=== PATIENT | male | born 1990 | race American Indian/Alaskan Native ===

== ENCOUNTER 2020-06-11 16:17 | Inpatient (IN) | payer MEDICAID ==
[~2020-06-11] VITALS: Ht 172.7 cm; Wt 68.1 kg
[2020-06-11 15:40] VITALS: BP 119/70
[~2020-06-11 16:17] MED LIST: NO HOME MEDS; PALI156D IM; acetaminophen 325mg tablet PO PRN; loperamide 2mg capsule PO PRN; magnesium hydroxide 30ml (MOM) UD suspension PO PRN
--- NOTE | 2020-06-11 17:32 | NUR ---
Admission note: [facility] on 5150 at 1545 for gravely disabled from [facility]. Pt was manic and making nonsensical speech. Pt has been off of his Invega sustaina. Pt often goes to his fathers house uninvited at 0300 in the morning. Pt has history of anxiety and Schizophrenia. Pt uncooperative at at [facility] requiring multiple prns and B52. Pt was sedated upon arrival but refusing to cooperate with admission but completed.
[2020-06-11] MEDS: traZODone 50mg tablet PO PRN (21:31)
[2020-06-11] MEDS: LORazepam 1 MG tablet PO PRN (21:31)
[2020-06-11] MEDS: NICOTINE POLACRILEX 2 MG LOZENGE BC PRN (21:59)
--- NOTE | 2020-06-11 22:38 | NUR ---
Nursing Progress Note Legal hold: 515 Client on voluntary/involuntary status for GD. Report received from nurse with use of Jonh GRUBBS. Why are they here: PT admitted [facility] to [facility] on 5150 for gravely disabled from [facility]. Pt was manic and making nonsensical speech. Pt has been off of his Invega sustaina. Pt often goes to his fathers house uninvited at 0300 in the morning. Pt has history of anxiety and Schizophrenia. Pt uncooperative at at [facility] requiring multiple prns and B52. Pt was sedated upon arrival but refusing to cooperate with admission but completed. Diagnosis/presenting symptoms: Psychosis Assessment What has happened this shift: pt isolated to his room all evening. Pt briefly awoke for assessments but would not talk or engage. Pt did wake up at one point and asked for a snack. When snack was brought to pt, pt would not wake up to eat it. Pt eventually woke up again and was more friendly. Pt ate several snacks and requested an Ativan for anxiety before returning to bed. S/I, H/I: zuly A/VH: zuly Sleep: see sleep hours ADL's: will need prompting Group attendance: n/a Were meds taken: n/a Any med S/E n/a Mental Status Exam Appearance: facial tattoos, disheveled Eye contact: poor Behavior: sedated Speech: quiet, slow Mood: lethargic Affect: flat Thought process: zuly Thought Content: food Cognition: zuly Insight: poor Judgment: poor Therapeutic interventions: PRN's used: Therapeutic interventions: Introduced self and attempted to establish rapport, maintained a safe and supportive environment, provided clear and simple instructions, attempted to orient to reality, monitored behaviors and need for intervention, and maintained Q 15min safety checks. Restraints/seclusion/emergency medication: None Justification of Continued Inpatient Treatment: Pt. requires interruption of current crisis, medication adjustments, and a safe and supportive environment.
[2020-06-12 07:15] VITALS: BP 117/63
[2020-06-12] MEDS: LORazepam 1 MG tablet PO PRN ×3 (07:59→20:06)
[2020-06-12] MEDS: nicotine 21mg patch - 24 hr TD SCH (08:22)
--- NOTE | 2020-06-12 09:26 | NUR ---
Malnutrition Consult: Pending reports in EMR as well as labs and further pt information at this time. Current BMI 21 w/ no prior wt hx, normal strength, and no edema/wounds per EMR. Noted refused first meal last night; will need additional information this admit in order to accurately determine nutrition status. Addendum: 06/12/20 at [address] Amended: Links added.
[2020-06-12] MEDS: NICOTINE POLACRILEX 2 MG LOZENGE BC PRN ×3 (09:37→17:36)
--- NOTE | 2020-06-12 16:20 | NUR ---
Nursing Progress Note: Legal hold: 5150 Client on involuntary status for GD Report received from nurse with use of SBAR: Brunilda Villanueva RN Why are they here: [facility] today on 5150 at 1545 for gravely disabled from [facility]. Pt was manic and making nonsensical speech. Pt has been off of his Invega sustaina. Pt often goes to his fathers house uninvited at 0300 in the morning. Pt has history of anxiety and Schizophrenia. Pt uncooperative at at [facility] requiring multiple prns and B52. Pt was sedated upon arrival but refusing to cooperate with admission but completed. Assessment What has happened this shift: Received pt. up pacing the hallway at the beginning of the shift requesting breakfast, he had previously been provided a snack by Noc shift. Pt. was educated by multiple staff members that breakfast was on it's way and would be here at any time. However, a few minutes later pt. approached the nurse's station irritably demanding to know where breakfast was from the CRN. CRN educated pt. that he had just been told when breakfast would arrive and he needed to walk away. Pt. became agitated and approached the CRN impulsively getting in his face and stating he would fight him so he can go to [facility]. CRN had to physically place his hands on pt. for safety reasons/threat of violence and security was called. With security present for a show of force, pt. was able to be redirected and educated regarding the rules of the unit. Pt. remained irritable/anxious with hyperverbal and pressured speech, however accepted PRN Ativan. Pt. continued to present as restless and irritable, AEB pacing the unit and yelling out at times. Attempted to complete 1:1 at bedside, pt. denies any S/I, H/I, or A/V/BURK. His speech remains hyperverbal and pressured and he attempts to talk over this remote mortgage underwriter. Pt. remains agitated with the paranoid delusion that staff is tampering with the telephone lines and blocking his calls because he has been unable to reach his family. This remote mortgage underwriter attempted to provide education to pt. regarding how to appropriately use the telephone, however he refused to listen and stated, "Get out of my room!" Later, pt. apologized to this remote mortgage underwriter, allowed staff to assist him in using the telephone, and was able to reach his family. Pt. reports he is upset because he was sent to [place] instead of being placed at the [facility] in [facility]. MRX1 dose of Ativan was administered with effectiveness. Pt. remains restless throughout the day, but does not exhibit any further agitated outbursts. He does appear to be med seeking and requests Ativan multiple times stating, "I love taking pills!," endorsed to ROBERT Domingo. S/I, H/I: Denies A/VH: Denies, does not appear to be internally preoccupied Sleep: Pt. reports he did not sleep well, but that's normal for him. He states, "I can sleep 23min at a time if I want to!" Sleep hours are 3.75 ADL's: Pt. requires direction and encouragement Group attendance: N/A Were meds taken: None ordered Any med S/E: N/A Mental Status Exam Appearance: Disheveled and soiled Eye contact: Good, intense at times Behavior: Cooperative/RTC, agitated, restless, anxious, impulsive, and irritable Speech: Hyperverbal and pressured Mood: Restless and irritable Affect: Labile Thought process: Tangental Thought Content: Paranoid delusions and perseveration on desire to discharge Cognition: A&O X2 (name and place) Insight: Poor Judgment: poor Interventions PRN's used: Ativan X2 and Nicotine Lozenge Therapeutic interventions: Ensured contract for safety, maintained a safe and supportive environment, provided clear and simple instructions, attempted to orient to reality, monitored behaviors and need for intervention, encouraged independent performance of ADLs, and maintained Q 15min safety checks. Restraints/seclusion/emergency medication: N/A Justification of Continued Inpatient Treatment: Pt. requires interruption of current crisis, medication adjustments, and a safe and therapeutic environment. Addendum: 06/12/20 at 1813 by Selin Bran RN Invega Sustenna injection administered in pt's left deltoid, pt. tolerated well.
[2020-06-12] MEDS ORDERED: paliperidone palmitate inj 234 MG/1.5 ML SYRINGE IM ONE (17:10)
[2020-06-12] MEDS: traZODone 50mg tablet PO PRN ×2 (20:06→21:40)
--- NOTE | 2020-06-13 02:56 | NUR ---
Nursing Progress Note Legal hold: 515 Client on voluntary/involuntary status for GD. Report received from nurse with use of Jonh GRUBBS. Why are they here: [facility] on [facility]150 for gravely disabled from [facility]. Pt was manic and making nonsensical speech. Pt has been off of his Invega sustaina. Pt often goes to his fathers house uninvited at 0300 in the morning. Pt has history of anxiety and Schizophrenia. Pt uncooperative at at [facility] requiring multiple prns and B52. Pt was sedated upon arrival but refusing to cooperate with admission but completed. Diagnosis/presenting symptoms: Psychosis Assessment What has happened this shift: pt more active on the unit this evening. Pt spent a lot of the evening calling various people and watching tv. Pt denied having any complaints other than always being hungry. Pt was cooperative for assessments and accepted hs meds without issue. Pt denied ever having auditory hallucinations or being suicidal. S/I, H/I: denies A/VH: denies Sleep: see sleep hours ADL's: will need prompting Group attendance: n/a Were meds taken: yes Any med S/E: no Mental Status Exam Appearance: facial tattoos, disheveled Eye contact: fair Behavior: social Speech: quiet, wnl Mood: restless Affect: flat Thought process: disorganized Thought Content: food Cognition: a/o x4 Insight: poor Judgment: poor Therapeutic interventions: PRN's used: trazadone Therapeutic interventions: Introduced self and attempted to establish rapport, maintained a safe and supportive environment, provided clear and simple instructions, attempted to orient to reality, monitored behaviors and need for intervention, and maintained Q 15min safety checks. Restraints/seclusion/emergency medication: None Justification of Continued Inpatient Treatment: Pt. requires interruption of current crisis, medication adjustments, and a safe and supportive environment.
[2020-06-13] MEDS: NICOTINE POLACRILEX 2 MG LOZENGE BC PRN ×5 (05:59→19:47)
[2020-06-13 07:08] VITALS: BP 105/68
[2020-06-13] MEDS: nicotine 21mg patch - 24 hr TD SCH (07:17)
[2020-06-13] MEDS: LORazepam 1 MG tablet PO PRN ×3 (07:17→15:29)
--- NOTE | 2020-06-13 09:16 | NUR ---
Threatening conversation: PT at nurses station complaining that his mother was on the phone giving too much information to the community midwife. Explained to pt that the social secretary is not giving any information to his mother but that his mother has a right to talk. PT escalated into yelling and demanding his mother stop talking and demanding social secretary hang up. Pt posturing at the door and threatening to fight. Told pt to walk away and calm down. PT continues cursing at one of the techs but eventually stops.
--- NOTE | 2020-06-13 14:25 | NUR ---
Malnutrition Consult: Per H&P pt was admitted for noncompliance with schizophrenic medication and previous substance abuse. Pt reports recent wt loss and loss of appetite according to the malnutrition screening for Nursing. PO 100% on Regular Diet. Last BM 06/13. Normal muscle strength an no edema per EMR. Does not meet minimum malnutrition criteria at this time. To provide initial assessment on above date. Addendum: 06/13/20 at [address] Amended: Links added. Addendum: 06/13/20 at [address] SASHA Howell
--- NOTE | 2020-06-13 16:18 | NUR ---
Assessment Presenting Issues: Pt's 5150 by [facility] after meeting GD criteria as pt was found knocking on people's doors @ 3AM, eating out of trash cans an going thru his father's car. Interventions: SS attempted to engage pt in completing his bio-psychosocial assessment. However, pt declined to speak w/SS. Pt's mother contacted and provided info for assessment. also had t/c [facility] DCP, PK who provided some info for the assessment. Plan: will continue to monitor pt's progress and response to treatment, engage [facility] in dcp activities when appropriate. Shama Tomlinson LCSW Addendum: 06/13/20 at 1631 by Shama Tomlinson Amended: Links added.
--- NOTE | 2020-06-13 16:23 | NUR ---
Nursing Progress Note: Legal hold: 5150 Client on involuntary status for GD Report received from nurse with use of SBAR: Brunilda Villanueva RN Why are they here: [facility] today on 5150 at 1545 for gravely disabled from [facility]. Pt was manic and making nonsensical speech. Pt has been off of his Invega sustaina. Pt often goes to his fathers house uninvited at 0300 in the morning. Pt has history of anxiety and Schizophrenia. Pt uncooperative at at [facility] requiring multiple prns and B52. Pt was sedated upon arrival but refusing to cooperate with admission but completed. Assessment What has happened this shift: Received pt. up pacing the hallway at the beginning of the shift wearing headphones, he greeted this selling underwriter appropriately, however continues to appear restless and anxious. A short time later pt. requested PRN Ativan, administered with minimal effectiveness. 1:1 completed at bedside, pt. continues to present as impulsive, agitated, restless, anxious, and irritable with hyperverbal and pressured speech. His thought process remains somewhat tangental, however he is able to answer questions appropriately with some redirection. Pt. continues to deny any S/I, H/I, or V/BURK, however admits to A/BURK. Pt. reports he has experienced these A/BURK throughout his life, but when questioned by this selling underwriter regarding their content states irritably, "That's for me to know and you to find out." Pt. perseverates on his desire for discharge, but when questioned by this selling underwriter cannot produce any viable plans for long term, food, or clothing. Pt. states, "I can beg for change." Pt. is very defensive throughout the conversation and is resistant towards taking responsibility for his current circumstances. He states irritably, "They keep arresting me for no reason!" A short time later, pt. is observed to be pacing in the hallway yelling out, "I need to get the fuck out of here!" Endorsed to Dr. Cristobal who okayed this selling underwriter to administer MRX1 dose of Ativan, administered with effectiveness. Pt. continued to present as restless and slightly irritable throughout the shift, AEB pacing the unit but does not exhibit any further agitated outbursts. Additional PRN Ativan administered in the afternoon with effectiveness. S/I, H/I: Denies A/VH: Pt. reports A/BURK which he has experienced for his entire life Sleep: Pt. reports he slept restlessly, sleep hours are 2.75 ADL's: Pt. requires direction and encouragement Group attendance: N/A Were meds taken: Yes Any med S/E: N/A Mental Status Exam Appearance: Disheveled, however pt. does shower today Eye contact: Good, intense at times Behavior: Cooperative, agitated, restless, anxious, impulsive, and irritable Speech: Hyperverbal and pressured Mood: Restless and irritable Affect: Labile Thought process: Tangental Thought Content: A/BURK and perseveration on desire to discharge Cognition: A&O X2 (name and place) Insight: Poor Judgment: poor Interventions PRN's used: Ativan X3 and Nicotine Lozenge Therapeutic interventions: Ensured contract for safety, maintained a safe and supportive environment, provided clear and simple instructions, attempted to orient to reality, monitored behaviors and need for intervention, encouraged independent performance of ADLs, provided positive encouragement and redirection as needed, and maintained Q 15min safety checks. Restraints/seclusion/emergency medication: N/A Justification of Continued Inpatient Treatment: Per Dr. Cristobal, pt. continues to require medication adjustments and a safe and therapeutic environment. He continues to be a high risk discharge and GD.
[2020-06-13 19:20] VITALS: BP 113/68
[2020-06-13] MEDS: traZODone 50mg tablet PO PRN (20:33)
[2020-06-13] MEDS: traZODone 50mg tablet PO SCH (21:51)
[2020-06-14] MEDS: NICOTINE POLACRILEX 2 MG LOZENGE BC PRN ×4 (00:44→16:39)
--- NOTE | 2020-06-14 02:12 | NUR ---
Nursing Progress Note: Legal hold: 5150 Client on involuntary status for GD Report received from nurse with use of SBAR: Jonh BRIONES Why are they here: [facility] today on 5150 at 1545 for gravely disabled from [facility]. Pt was manic and making nonsensical speech. Pt has been off of his Invega sustaina. Pt often goes to his fathers house uninvited at 0300 in the morning. Pt has history of anxiety and Schizophrenia. Pt uncooperative at at [facility] requiring multiple prns and B52. Pt was sedated upon arrival but refusing to cooperate with admission but completed. Assessment What has happened this shift: Pt mood labile. Pt pacing in halls at start of shift. Smiled and was pleasant during greetings. Later when approached was hostile. One word answers, Not cooperative with assessment "I just want to go home. " Pt denied AH although he told dayshift he did have AH. Pt asleep when new roommate arrived. roommate was noisy and woke pt. Pt was friendly and talkative. He said about new roommate "He's alright. S/I, H/I: Denies A/VH: Denied this shift Sleep: asleep at this time ADL's: Pt. requires direction and encouragement Group attendance: N/A Were meds taken: Yes Any med S/E: N/A Mental Status Exam Appearance: Disheveled, however pt. does shower today Eye contact: Good, intense at times Behavior: Labile Cooperative, agitated, restless, anxious, impulsive, and irritable Speech: Hyperverbal and pressured Mood: Restless and irritable Affect: Labile Thought process: Tangental Thought Content: A/BURK and perseveration on desire to discharge Cognition: A&O X2 (name and place) Insight: Poor Judgment: poor Interventions PRN's used: Trazodone X2 Tylenol and Nicotine Lozenge Therapeutic interventions: Ensured contract for safety, maintained a safe and supportive environment, provided clear and simple instructions, attempted to orient to reality, monitored behaviors and need for intervention, encouraged independent performance of ADLs, provided positive encouragement and redirection as needed, and maintained Q 15min safety checks. Restraints/seclusion/emergency medication: N/A Justification of Continued Inpatient Treatment: Per Dr. Cristobal, pt. continues to require medication adjustments and a safe and therapeutic environment. He continues to be a high risk disc
[2020-06-14] MEDS: nicotine 21mg patch - 24 hr TD SCH (07:11)
[2020-06-14 08:00] VITALS: BP 113/67
[2020-06-14] MEDS: LORazepam 1 MG tablet PO PRN ×2 (08:30→16:04)
--- NOTE | 2020-06-14 13:53 | NUR ---
Assessment Presenting Issues: Pt declined to participate in his bio-psychosocial assessment previously, today pt appears to exhibit clearer thought processing, less delusional & less paranoid. Interventions: SS met w/pt and engaged him in completing his bio-psychosocial assessment, DAST. Pt also signed CHRISSY for parents & [facility] services. DAST- pt scored a 9 on the Drug Abuse Screening Tool, an indication that current use is severe. Plan: SS will continue to monitor pt's progress, and engage pt, his family & [facility] in dcp when appropriate. Shama Tomlinson LCSW Addendum: 06/14/20 at 1503 by Shama ROACH Amended: Links added.
--- NOTE | 2020-06-14 16:47 | NUR ---
Nursing Progress Note: Legal hold: 5250 Client on involuntary status for GD Report received from nurse with use of SBAR: OSEAS Cabezas Why are they here: [facility] today on 5150 at 1545 for gravely disabled from [facility]. Pt was manic and making nonsensical speech. Pt has been off of his Invega sustaina. Pt often goes to his fathers house uninvited at 0300 in the morning. Pt has history of anxiety and Schizophrenia. Pt uncooperative at at [facility] requiring multiple prns and B52. Pt was sedated upon arrival but refusing to cooperate with admission but completed. Assessment What has happened this shift: Received pt. up pacing the hallway at the beginning of the shift wearing headphones and KN95 masks on his knee, elbow, and ankle. He continues to perseverate on discharge and can be demanding, but is able to be redirected. 1:1 completed at bedside, pt. continues to deny all MH s/s including A/BURK this shift, he states irritably, "That was a long time ago!" This junior copywriter attempted to question pt. regarding his plans for discharge and housing, however he stated, "That's for me to know and you to find out," and quickly walked away. 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 At approximately 0830 pt. requested PRN Ativan, and this junior copywriter attempted to question him regarding his anxiety. Pt. became irritable and defensively yelled out, "Are you anxious?! Fine I don't need it, keep it!" he then rapidly retreated to his room. This junior copywriter was able to provide redirection and positive encouragement, and PRN Ativan administered with effectiveness. Pt. was served his 5250 in the afternoon and tolerated this well. This junior copywriter spoke to his father per pt's request, and explained pt's legal hold. Pt. continued to present as restless throughout the shift, and additional PRN Ativan administered in the afternoon. He remained up interacting appropriately with others throughout the shift, no further agitated outbursts exhibited. S/I, H/I: Denies A/VH: Pt. denies Sleep: Pt. reports he slept restlessly, sleep hours are 3.45, endorsed to Dr. Cristobal ADL's: pt. requires some direction Group attendance: N/A Were meds taken: Yes Any med S/E: N/A Mental Status Exam Appearance: Disheveled, wearing KN95 masks on knee, elbow, and ankle Eye contact: Good, intense at times Behavior: Cooperative, restless, anxious, impulsive, and irritable Speech: Continues to be somewhat hyperverbal Mood: Restless and slightly irritable Affect: Labile Thought process: Linear Thought Content: Perseveration on desire to discharge Cognition: A&O X3 Insight: Poor Judgment: poor Interventions PRN's used: Ativan X2 and Nicotine Lozenge Therapeutic interventions: Ensured contract for safety, maintained a safe and supportive environment, provided clear and simple instructions, monitored behaviors and need for intervention, provided positive encouragement and redirection as needed, and maintained Q 15min safety checks. Restraints/seclusion/emergency medication: N/A Justification of Continued Inpatient Treatment: Per Dr. Cristobal, pt. continues to require medication adjustments and a safe and therapeutic environment. He continues to be a high risk discharge and does not have a viable plan.
[2020-06-14] MEDS: acetaminophen 325mg tablet PO PRN (18:40)
[2020-06-14 19:38] VITALS: BP 126/65
[2020-06-14] MEDS: traZODone 50mg tablet PO SCH (20:44)
[2020-06-14] MEDS: divalproex sod 250mg ER (24-hour) tablet PO SCH (20:44)
--- NOTE | 2020-06-14 23:53 | NUR ---
Nursing Progress Note: Legal hold: 525 Client on involuntary status for GD Report received from nurse with use of SBAR: OSEAS Borja Why are they here: [facility] on 5150 at 1545 for gravely disabled from [facility]. Pt was manic and making nonsensical speech. Pt has been off of his Invega sustaina. Pt often goes to his fathers house uninvited at 0300 in the morning. Pt has history of anxiety and Schizophrenia. Pt uncooperative at at [facility] requiring multiple prns and B52. Pt was sedated upon arrival but refusing to cooperate with admission but completed. Assessment What has happened this shift: PT walks the unit at shift change. He is observed talking with other male patients and getting along well. He utilizes PRN Tylenol for a headache. Pts first dose of Depakote was 500mg tonight, medication education done, pt verbalized understanding. He is seen joking with peers and is social. He goes to sleep without issue S/I, H/I: Denies A/VH: Pt. denies Sleep: Pt. reports he slept restlessly, sleep hours are 3.45, endorsed to Dr. Cristobal ADL's: pt. requires some direction Group attendance: N/A Were meds taken: Yes Any med S/E: N/A Mental Status Exam Appearance: Disheveled Eye contact: Good Speech: Continues to be somewhat hyperverbal Mood: Restless and slightly irritable Affect: Labile Thought process: Linear Thought Content: Perseveration on desire to discharge Cognition: A&O X3 Insight: Poor Judgment: poor Interventions PRN's used: Therapeutic interventions: Ensured contract for safety, maintained a safe and supportive environment, provided clear and simple instructions, monitored behaviors and need for intervention, provided positive encouragement and redirection as needed, and maintained Q 15min safety checks. Restraints/seclusion/emergency medication: N/A Justification of Continued Inpatient Treatment: Per Dr. Cristobal, pt. continues to require medication adjustments and a safe and therapeutic environment. He continues to be a high risk discharge and does not have a viable plan. Addendum: 06/15/20 at 0507 by Yumiko Herbert RN Pt did not sleep well and was up on and off most of the night regardless of PRNS
[2020-06-15] MEDS: LORazepam 1 MG tablet PO PRN ×3 (00:51→18:10)
[2020-06-15] MEDS: acetaminophen 325mg tablet PO PRN ×2 (00:51→20:36)
[2020-06-15] MEDS: NICOTINE POLACRILEX 2 MG LOZENGE BC PRN ×4 (03:41→16:12)
[2020-06-15 07:40] VITALS: BP 97/77
[2020-06-15] MEDS: nicotine 21mg patch - 24 hr TD SCH (08:43)
--- NOTE | 2020-06-15 16:27 | NUR ---
Nursing Progress Note Legal hold: 525 Client on involuntary status for GD Report received from OSEAS Cabezas with use of SBAR Why are they here: [facility] on [facility]150 at 1545 for gravely disabled from [facility]. Pt was manic and making nonsensical speech. Pt has been off of his Invega sustaina. Pt often goes to his fathers house uninvited at 0300 in the morning. Pt has history of anxiety and Schizophrenia. Pt uncooperative at at [facility] requiring multiple prns and B52. Pt was sedated upon arrival but refusing to cooperate with admission but completed. Assessment What has happened this shift: Received pt. up pacing the hallway at the beginning of the shift. Pt was talking with another Pt. and smiling when this RN introduced himself. Pt appeared tense but in a good mood and laughing at times. Pt cooperated with vitals and ate breakfast and all meals well. He became irritated at end of breakfast and received Ativan at his request and he laid down. Pt easily agitated and responded with threats in the late morning due to not being allowed to listen to Lind on the TV. He was escalating, stating Im tired of being ignored, people come in my roomI cant get what I need but others can. Im gonna get pissed why didnt I go to [facility], the police drugged me and I woke up herewouldnt you be pissed?. Security called and came to unit and this RN spoke with him about expressing feelings w/o threats and he was willing to go to his room, where he calmed. Pt denies any Sxs and used nicotine lozenges throughout the day. Pt also intermitently used phone. S/I, H/I: Denies A/VH: Pt. denies Sleep: Pt napped in AM ADL's: Independent Group attendance: N/A Were meds taken: Yes Any med S/E: N/A Mental Status Exam Appearance: Casual Eye contact: Good, intense at times Behavior: Cooperative, restless, anxious, impulsive, and irritable Speech: Coherent, aggressive at times Mood: Restless Affect: Labile Thought process: Linear Thought Content: Perseveration on desire to discharge Cognition: A&O X3 Insight: Poor Judgment: poor Interventions PRN's used: Ativan and Nicotine Lozenges Therapeutic interventions: Ensured contract for safety, maintained a safe and supportive environment, provided clear and simple instructions, monitored behaviors and need for intervention, provided positive encouragement and redirection as needed, and maintained Q 15min safety checks. Restraints/seclusion/emergency medication: N/A Justification of Continued Inpatient Treatment: Per Dr. Cristobal, pt. continues to require medication adjustments and a safe and therapeutic environment. He continues to be a high risk discharge and does not have a viable plan.
[2020-06-15 19:34] VITALS: BP 99/50
[2020-06-15] MEDS: traZODone 50mg tablet PO SCH (20:36)
[2020-06-15] MEDS: divalproex sod 250mg ER (24-hour) tablet PO SCH (20:36)
--- NOTE | 2020-06-15 23:52 | NUR ---
Nursing Progress Note: Legal hold: 525 Client on involuntary status for GD Report received from nurse with use of SBAR: Bud RN Why are they here: [facility] today on 5150 at 1545 for gravely disabled from [facility]. Pt was manic and making nonsensical speech. Pt has been off of his Invega sustaina. Pt often goes to his fathers house uninvited at 0300 in the morning. Pt has history of anxiety and Schizophrenia. Pt uncooperative at at [facility] requiring multiple prns and B52. Pt was sedated upon arrival but refusing to cooperate with admission but completed. Assessment What has happened this shift: PT is active on the unit having conversations with peers and walking around. He denies SI/HI/AH/VH. "I am ready to get out of here and go home." He goes to sleep without issue . S/I, H/I: Denies A/VH: Pt. denies Sleep: see sleep assessment ADL's: pt. requires some direction Group attendance: N/A Were meds taken: Yes Any med S/E: N/A Mental Status Exam Appearance: Disheveled Eye contact: Good Speech: Continues to be somewhat hyperverbal Mood: Restless and slightly irritable Affect: Labile Thought process: Linear Thought Content: Perseveration on desire to discharge Cognition: A&O X3 Insight: Poor Judgment: poor Interventions PRN's used:tylenol Therapeutic interventions: Ensured contract for safety, maintained a safe and supportive environment, provided clear and simple instructions, monitored behaviors and need for intervention, provided positive encouragement and redirection as needed, and maintained Q 15min safety checks. Restraints/seclusion/emergency medication: N/A Justification of Continued Inpatient Treatment: Per Dr. Cristobal, pt. continues to require medication adjustments and a safe and therapeutic environment. He continues to be a high risk discharge and does not have a viable plan.
[2020-06-16] MEDS: acetaminophen 325mg tablet PO PRN ×2 (02:02→08:13)
[2020-06-16] MEDS: LORazepam 1 MG tablet PO PRN ×3 (05:00→18:11)
[2020-06-16 07:37] VITALS: BP 116/73
[2020-06-16] MEDS: nicotine 21mg patch - 24 hr TD SCH ×2 (08:00→09:20)
[2020-06-16] MEDS: divalproex sod 250mg ER (24-hour) tablet PO SCH ×2 (08:04→20:25)
--- NOTE | 2020-06-16 11:10 | NUR ---
PROBABLE CAUSE HEARING Patients Name: Jose Raymond Admission Date: 06/11/2020 Date of 5150: 06/10/2020 Written by: [facility] Criteria: GD Summary of Facts: A resident reported a male was knocking on her front door and going to the neighbors at 0300. I responded and located Jose looking in a vehicle, Jose appeared manic and was nonsensically speaking. I called Courtney father who stated that Jose had not taken his medicine in several months. Date of 5250: 06/14/2020 Written by: Susu Criteria: GD Summary of Facts: This patient was brought to the hospital by law enforcement for being labile, knocking at the doors at 3 am, eating out of trash cans and not compliant with treatment. The patient continues to exhibit manic symptoms notably severe mood lability, decreased need for sleep, disorganized thought pattern, poor hygiene, wearing kn95 masks on his ankles, elbows. He does not have a viable dc plan for housing, food, op follow up. He thinks that his old graduation coach will find him housing despite discussing other ways to find housing, he seems to be focused on this. In my opinion he is gravely disabled, though he is compliant with medications, and hopefully medication titration will improve his condition. : Diagnosis: Psychosis NOS Behavior during 72 HRS: Patient presents as easily agitated, states Im gonna get pissed why didnt I go to [facility], the police drugged me and I woke up herewouldnt you be pissed?. A nurse tried to talk to him about his dc plan and he stated "That's for me to know and you to find out,". FOOD: 100 SLEEPIN ADLS: ind PRISON: homeless MEDICATION DOSAGE FREQUENCY DURATION Depakote 500 bid Trazodone 100 q hs Ativan 1 mg prn last took today Invega sustenna injection Addendum: 06/17/20 at 0804 by Sharifa Spencer RN Jose attended and contested his hearing. He was not able to adequately describe a plan for food, clothing, or jail. [facility] then added "well I talked to teen [employer] [facility] today so maybe I could go there", then started talking abou how he had worked for a company who worked by or for [employer] at some point in the past and "I'm sure they would take me". For food he stated, "I don't know. Maybe my dad could get me a motel and I could get door dash." then spontaneously began talking about how he was eating out of garbage cans because his dad only gave him $20/month and he was bringing them to his dad to get them microwaved because it got rid of the germs. For clothing he stated "maybe [employer] or something, if they let me wear these clothes out I'll be fine". The hearing was upheld, Jose acted appropriately and walked out of the room.
--- NOTE | 2020-06-16 11:38 | NUR ---
CM-DCP Presenting Issues: Pt's 5250 Hearing is scheduled for this afternoon. Pt plans to contest, while pt is not clinically ready for d/c, pt needs a dcp in place in the event that pt is able to win his case. Interventions: SS had t/c with pt's mother/Michelle Hernandez @ [phone] and attempted to coordinate transportation back to [facility] for pt, per t/c family will consider picking him up but they are hoping that he does not get release from the 5250 Hold. SS had t/c with PK/DCP @ [facility]- [phone], per t/c PK will schedule a f/u for pt for sometime next week, but transportation won't be available until tomorrow. Plan: SS will f/u with [facility] to finalize dcp pending outcome of 5250 Hearing. Shama Tomlinson LCSW Addendum: 06/16/20 at 1146 by Shama Tomlinson Amended: Links added.
[2020-06-16] MEDS: NICOTINE POLACRILEX 2 MG LOZENGE BC PRN ×2 (13:43→18:14)
--- NOTE | 2020-06-16 15:30 | NUR ---
Initial: Pt admitted for noncompliance with schizophrenic medication and previous substance abuse. PO continues to be 100% on a regular diet; meeting nutrient needs. Last BM 06/15. No nutrition diagnosis at this time. Will continue to follow. Recommend: 1) Continue regular diet 2) PRN bowel care 3) Weekly wts Addendum: 06/16/20 at [address] Amended: Links added. Addendum: 06/16/20 at [address] I have reviewed and agree with note by Ophthalmic Medical Technician. Alena Perez RD
--- NOTE | 2020-06-16 16:10 | NUR ---
Nursing Progress Note Legal hold: 5250 Client on involuntary status for GD Report received from OSEAS Cabezas with use of SBAR Why are they here: [facility] on 5150 at 1545 for gravely disabled from [facility]. Pt was manic and making nonsensical speech. Pt has been off of his Invega sustaina. Pt often goes to his fathers house uninvited at 0300 in the morning. Pt has history of anxiety and Schizophrenia. Pt uncooperative at at [facility] requiring multiple prns and B52. Pt was sedated upon arrival but refusing to cooperate with admission but completed. Assessment What has happened this shift: Pt has been up and visible all shift. Pt affect relatively flat. Pt ate meals in the dayroom and did become agitated x 1 with another pt that had no boundaries. Pt did not escalate too much, just mostly telling this other pt to leave him alone. Majority of the day, pt calm without agitation or aggression. Pt did request and receive ativan x 1 for anxiety with positive effects. Pt denies S.I./H.I. and denies hallucinations. No evidence of delusional thought content. S/I, H/I: Denies A/VH: Pt. denies Sleep: Pt napped in AM ADL's: Independent Group attendance: N/A Were meds taken: Yes Any med S/E: N/A Mental Status Exam Appearance: Casual Eye contact: Good, intense at times Behavior: Cooperative, restless, anxious, impulsive, and irritable Speech: Coherent, aggressive at times Mood: Restless Affect: Labile Thought process: Linear Thought Content: Perseveration on desire to discharge Cognition: A&O X3 Insight: Poor Judgment: poor Interventions PRN's used: Ativan and Nicotine Lozenges Therapeutic interventions: Ensured contract for safety, maintained a safe and supportive environment, provided clear and simple instructions, monitored behaviors and need for intervention, provided positive encouragement and redirection as needed, and maintained Q 15min safety checks. Restraints/seclusion/emergency medication: N/A Justification of Continued Inpatient Treatment: Per Dr. Cristobal, pt. continues to require medication adjustments and a safe and therapeutic environment. He continues to be a high risk discharge and does not have a viable plan.
[2020-06-16 20:00] VITALS: BP 124/71
[2020-06-16] MEDS: traZODone 50mg tablet PO SCH ×2 (20:26→22:25)
[2020-06-17] MEDS: NICOTINE POLACRILEX 2 MG LOZENGE BC PRN ×3 (02:27→16:05)
--- NOTE | 2020-06-17 03:48 | NUR ---
Nursing Progress Note: Legal hold: 525 Client on involuntary status for GD Report received from nurse with use of SBAR: OSEAS Yang Why are they here: [facility] on 5150 at 1545 for gravely disabled from [facility]. Pt was manic and making nonsensical speech. Pt has been off of his Invega sustaina. Pt often goes to his fathers house uninvited at 0300 in the morning. Pt has history of anxiety and Schizophrenia. Pt uncooperative at at [facility] requiring multiple prns and B52. Pt was sedated upon arrival but refusing to cooperate with admission but completed. Assessment What has happened this shift: Patient laying in bed at the beginning of shift. Pleasant and cooperative with care; compliant with medication. PRN Trazodone provided upon request. Denies SI, HI, A/VH. No delusional thought content provided and does not appear to be responding to IS. Patient participated in HS snack; he appears to be interacting well with peers. Patient observed sleeping; he woke early AM and pacing the unit. S/I, H/I: Denies A/VH: Denies Sleep: Refer to sleep assessment ADL's: Independent Group attendance: N/A Were meds taken: Yes Any med S/E: None observed or reported Mental Status Exam Appearance: Dressed in green unit scrubs Eye contact: Good Speech: Pleasant, cooperative, socializing appropriately Mood: Euphoric Affect: Congruent to mood Thought process: Linear Thought Content: Meeting needs Cognition: A&O X3 Insight: Poor Judgment: poor Interventions PRN's used: Trazodone Therapeutic interventions: Ensured contract for safety, maintained a safe and supportive environment, provided clear and simple instructions, monitored behaviors and need for intervention, provided positive encouragement and redirection as needed, and maintained Q 15min safety checks. Restraints/seclusion/emergency medication: N/A Justification of Continued Inpatient Treatment: Per Dr. Cristobal, pt. continues to require medication adjustments and a safe and therapeutic environment. He continues to be a high risk discharge and does not have a viable plan.
[2020-06-17] MEDS: LORazepam 1 MG tablet PO PRN ×2 (04:06→12:16)
[2020-06-17] MEDS: divalproex sod 250mg ER (24-hour) tablet PO SCH ×2 (07:25→21:03)
[2020-06-17 07:40] VITALS: BP 112/64
[2020-06-17] MEDS: nicotine 21mg patch - 24 hr TD SCH (08:45)
[2020-06-17] MEDS: mag hydrox/Alum hydrox/simeth 30ml oral suspension PO PRN (10:05)
[2020-06-17 14:15] LABS: HIV ANTIBODY 1&2 RAPID NON-REACTIVE (Neg)
--- NOTE | 2020-06-17 17:49 | NUR ---
Nursing Progress Note Legal hold: 5250 Client on involuntary status for GD Report received from RN with use of SBAR Why are they here: [facility] on 5150 at 1545 for gravely disabled from [facility]. Pt was manic and making nonsensical speech. Pt has been off of his Invega sustaina. Pt often goes to his fathers house uninvited at 0300 in the morning. Pt has history of anxiety and Schizophrenia. Pt uncooperative at at [facility] requiring multiple prns and B52. Pt was sedated upon arrival but refusing to cooperate with admission but completed. Assessment What has happened this shift: Received pt. up pacing the hallway at the beginning of the shift. Pt cooperative with vitals and showered early. He took AM meds w/o issue and attended all meals and ate well. Participated in phone call with Pts mother who described avoidant, angry, and bizzare behavior, stating he has been taken care of by her and her for past 7 years. She stated that he hears voices/chatter and that he was on Invega in past. Overall pleasant and cooperative although Pt gets easily angered at times thinking he is being singled out in a paranoid way. He made multiple phone calls today including a few to his mom. Pt anxious after a call and received Ativan with good effect. Pt concerned about risky behavior and wanted to be HIV tested. Consulted with Heber JONES and test ordered. Pt spent time in community room and rec. rm. Watching TV and interacting with staff and other Pts appropriately S/I, H/I: Denies A/VH: Pt. denies Sleep: Pt napped in AM ADL's: Independent Group attendance: N/A Were meds taken: Yes Any med S/E: N/A Mental Status Exam Appearance: Casual Eye contact: Good, intense at times Behavior: Cooperative, restless Speech: Coherent, aggressive at times Mood: Restless Affect: Labile Thought process: Linear Thought Content: Getting blood test Cognition: A&O X3 Insight: Poor Judgment: poor Interventions PRN's used: Ativan and Nicotine Lozenge, maalox Therapeutic interventions: Ensured contract for safety, maintained a safe and supportive environment, provided clear and simple instructions, monitored behaviors and need for intervention, provided positive encouragement and redirection as needed, and maintained Q 15min safety checks. Restraints/seclusion/emergency medication: N/A Justification of Continued Inpatient Treatment: Per Dr. Cristobal, pt. continues to require medication adjustments and a safe and therapeutic environment. He continues to be a high risk discharge and does not have a viable plan.
--- NOTE | 2020-06-17 18:38 | NUR ---
Please call Jose Raymond, clients father before discharged.
[2020-06-17 19:27] VITALS: BP 124/50
[2020-06-17] MEDS: traZODone 50mg tablet PO SCH (21:03)
[2020-06-18] MEDS: NICOTINE POLACRILEX 2 MG LOZENGE BC PRN ×6 (00:21→20:42)
[2020-06-18] MEDS: traZODone 50mg tablet PO SCH ×3 (00:21→22:59)
--- NOTE | 2020-06-18 02:19 | NUR ---
RN PROGRESS NOTE: LEGAL HOLD: 5250 for GD. REASON FOR ADMIT: Hx of schizophrenia and poly substance use (Meth and Heroin). Client had been taking Invega Sustena with good effect. For reasons that are not clear client decompensated and began exhibiting bizarre behaviors. Client was eating out of trash cans and going to [employer] homes in the middle of the night. Law enforcement was notified and client was taken to the ED and put on a 5150 Hold. THIS SHIFT: Client requested a blood draw for HIV, the results of that test are negative. Client was pacing in the [place] at change of shift. Overall, he has been pleasant and cooperative. Client told father he is being released today (06/18/20). Clients father was concerned, as he feels the client continues to make odd statements that are not factual. Father stated, "He took bath salts one time and was really bad off. It took him 3 months to recover, and he's never been the same." Clients father would like to speak to someone before client is released. Clients mood was stable. He appears to be preoccupied. Client took a shower. Was med compliant and reported that he had removed his Nicotine Patch. Client had difficulty sleeping. He requested headphones. DISCHARGE: Client thought process are disorganized. Client is unable to care for himself at this time and requires continuing med stabilization.
[2020-06-18] MEDS: LORazepam 1 MG tablet PO PRN ×4 (02:26→22:59)
[2020-06-18] MEDS: mag hydrox/Alum hydrox/simeth 30ml oral suspension PO PRN (03:24)
[2020-06-18 07:22] VITALS: BP 105/64
[2020-06-18] MEDS: nicotine 21mg patch - 24 hr TD SCH (08:18)
[2020-06-18] MEDS: divalproex sod 250mg ER (24-hour) tablet PO SCH ×2 (08:18→20:07)
[2020-06-18] MEDS: acetaminophen 325mg tablet PO PRN (14:28)
--- NOTE | 2020-06-18 15:49 | NUR ---
Nursing Progress Note Legal hold: 525 Client on involuntary status for GD Report received from ANALI Sam with use of SBAR Why are they here: [facility] on 5150 at 1545 for gravely disabled from [facility]. Pt was manic and making nonsensical speech. Pt has been off of his Invega Sustenna. Pt often goes to his fathers house uninvited at 0300 in the morning. Pt has history of anxiety and Schizophrenia. Pt uncooperative at at [facility] requiring multiple prns and B52. Pt was sedated upon arrival but refusing to cooperate with admission but completed. Assessment What has happened this shift: Pt up on the unit in the morning demanding to be discharged. Encouraged to wait for the doctor to discuss his discharge plans. Pt became angry threw his glasses and kicked over a yellow floor "wet" sign stand. He then went to his room. Security called for "stand by" pt then able to be redirected and took a nap. Pt later requested a PRN which was administered. Throughout the rest of the day he required multiple PRN's such as tylenol, and nicotine lozenges. S/I, H/I: Denies A/VH: Pt. denies Sleep: Pt napped in AM ADL's: Independent Group attendance: N/A Were Meds taken: Yes Any med S/E: None noted or reported Mental Status Exam Appearance: Casual Eye contact: Good, intense at times Behavior: Restless, angry and out of control at times Speech: Coherent, aggressive at times Mood: Restless Affect: Labile Thought process: Linear Thought Content: He is adamant over leaving Cognition: A&O X3 Insight: Poor Judgment: poor Interventions PRN's used: Ativan, Nicotine Lozenge, Tylenol Therapeutic interventions: Ensured contract for safety, maintained a safe and supportive environment, provided clear and simple instructions, monitored behaviors and need for intervention, provided positive encouragement and redirection as needed, medication administration/education/monitoring, and maintained Q 15min safety checks. Restraints/seclusion/emergency medication: N/A Justification of Continued Inpatient Treatment: Per Dr. Cristobal, pt. continues to require medication adjustments and a safe and therapeutic environment. He continues to be a high risk discharge and does not have a viable plan.
[2020-06-18 19:31] VITALS: BP 103/47
[2020-06-19] MEDS: NICOTINE POLACRILEX 2 MG LOZENGE BC PRN ×4 (02:22→17:25)
--- NOTE | 2020-06-19 04:22 | NUR ---
Nursing Progress Note: Legal hold: 525 Client on involuntary status for GD Report received from nurse with use of SBAR: OSEAS Yang Why are they here: [facility] on 5150 at 1545 for gravely disabled from [facility]. Pt was manic and making nonsensical speech. Pt has been off of his Invega sustaina. Pt often goes to his fathers house uninvited at 0300 in the morning. Pt has history of anxiety and Schizophrenia. Pt uncooperative at at [facility] requiring multiple prns and B52. Pt was sedated upon arrival but refusing to cooperate with admission but completed. Assessment What has happened this shift: Patient laying in bed at the beginning of shift. Pleasant and cooperative with care; compliant with medication. PRN Trazodone, Ativan and Nicotine lozenges provided upon request. Patient denies SI, HI, A/VH. No delusional thought content expressed and does not appear to be responding to IS. Patient participated in HS snack. Observed sleeping and does not appear to be having difficulty. S/I, H/I: Denies A/VH: Denies Sleep: Refer to sleep assessment ADL's: Independent Group attendance: N/A Were meds taken: Yes Any med S/E: None observed or reported Mental Status Exam Appearance: Dressed in green unit scrubs Eye contact: Good Speech: Pleasant, cooperative, socializing appropriately Mood: Euphoric Affect: Congruent to mood Thought process: Linear Thought Content: Meeting needs Cognition: A&O X3 Insight: Poor Judgment: poor Interventions PRN's used: Trazodone, Nicotine lozenges and Ativan Therapeutic interventions: Ensured contract for safety, maintained a safe and supportive environment, provided clear and simple instructions, monitored behaviors and need for intervention, provided positive encouragement and redirection as needed, and maintained Q 15min safety checks. Restraints/seclusion/emergency medication: N/A Justification of Continued Inpatient Treatment: Per Dr. Cristobal, pt. continues to require medication adjustments and a safe and therapeutic environment. He continues to be a high risk discharge and does not have a viable plan.
[2020-06-19 07:33] VITALS: BP 114/59
[2020-06-19] MEDS: divalproex sod 250mg ER (24-hour) tablet PO SCH ×2 (07:42→20:25)
[2020-06-19] MEDS: nicotine 21mg patch - 24 hr TD SCH (08:18)
[2020-06-19] MEDS: LORazepam 1 MG tablet PO PRN ×2 (10:02→17:40)
[2020-06-19] MEDS: acetaminophen 325mg tablet PO PRN (11:24)
--- NOTE | 2020-06-19 16:52 | NUR ---
Nursing Progress Note Legal hold: 5250 Client on involuntary status for GD Report received from ANALI Sam with use of SBAR Why are they here: [facility] on 5150 at 1545 for gravely disabled from [facility]. Pt was manic and making nonsensical speech. Pt has been off of his Invega Sustenna. Pt often goes to his fathers house uninvited at 0300 in the morning. Pt has history of anxiety and Schizophrenia. Pt uncooperative at at [facility] requiring multiple prns and B52. Pt was sedated upon arrival but refusing to cooperate with admission but completed. Assessment What has happened this shift: Pt rests in his room on and off throughout the shift. He gets involved with other pts when staff need to redirect that other pt. for negative behaviors. He is perseverating on the injection due before he discharges. He is concerned he will not get a ride home tomorrow. He appears anxious over what will happen tomorrow. S/I, H/I: Denies A/VH: Appears to RIS Sleep: Pt napped on and off throughout shift ADL's: Independent Group attendance: N/A Were Meds taken: Yes Any med S/E: None noted or reported Mental Status Exam Appearance: Casual, dark blue cotton pants and a sweat shirt Eye contact: Good, intense at times Behavior: Restless, disorganized Speech: Coherent, aggressive at times Mood: Restless Affect: Labile Thought process: Linear Thought Content: Perseverating on his discharge Cognition: A&O X3 Insight: Poor Judgment: poor Interventions PRN's used: Ativan, Nicotine Lozenge, Tylenol Therapeutic interventions: provided clear and simple instructions, monitored behaviors and need for intervention, provided positive encouragement and redirection as needed, medication administration/education/monitoring, and maintained Q 15min safety checks. Restraints/seclusion/emergency medication: N/A Justification of Continued Inpatient Treatment: Per Dr. Cristobal, pt. continues to require medication adjustments and a safe and therapeutic environment. He continues to be a high risk discharge and does not have a viable plan.
[2020-06-19] MEDS ORDERED: paliperidone palmitate 156 mg/ml inj.**IM only IM ONE (18:40)
[2020-06-19 19:20] VITALS: BP 120/71
[2020-06-19] MEDS: traZODone 50mg tablet PO SCH (20:26)
[2020-06-20] MEDS: NICOTINE POLACRILEX 2 MG LOZENGE BC PRN ×5 (00:38→16:10)
--- NOTE | 2020-06-20 04:38 | NUR ---
Nursing Progress Note: Legal hold: 5250 Client on involuntary status for GD Report received from nurse with use of SBAR: Celia RN Why are they here: [facility] today on 5150 at 1545 for gravely disabled from [facility]. Pt was manic and making nonsensical speech. Pt has been off of his Invega sustaina. Pt often goes to his fathers house uninvited at 0300 in the morning. Pt has history of anxiety and Schizophrenia. Pt uncooperative at at [facility] requiring multiple prns and B52. Pt was sedated upon arrival but refusing to cooperate with admission but completed. Assessment What has happened this shift: Patient pacing the unit and socializing with staff at the beginning of shift. Pleasant and cooperative with care; compliant with medication. PRN Trazodone x2, Tylenol and Nicotine lozenges provided upon request. Patient reports he removed his Nicotine patch. He denies SI, HI, A/VH. He does not appear to be responding to IS and no delusional thought content expressed this shift. Patient observed watching basketball game, pacing the unit and participate in HS snack prior to bed. Patient observed sleeping but appears to be having difficulty staying asleep. S/I, H/I: Denies A/VH: Denies Sleep: Refer to sleep assessment ADL's: Independent Group attendance: N/A Were meds taken: Yes Any med S/E: None observed or reported Mental Status Exam Appearance: Appropriately dressed in personal attire. Eye contact: Good Behavior: Pleasant, cooperative, socializing appropriately, pacing, watching TV Speech: Clear, audible, regular rate/rhythm Mood: Euthymic Affect: Congruent to mood Thought process: Linear Thought Content: Meeting needs Cognition: A&O X3 Insight: Fair Judgment: Fair Interventions PRN's used: Trazodone, Nicotine lozenges and Tylenol Therapeutic interventions: Ensured contract for safety, maintained a safe and supportive environment, provided clear and simple instructions, monitored behaviors and need for intervention, provided positive encouragement and redirection as needed, and maintained Q 15min safety checks. Restraints/seclusion/emergency medication: N/A Justification of Continued Inpatient Treatment: Per Dr. Cristobal, pt. continues to require medication adjustments and a safe and therapeutic environment. He continues to be a high risk discharge and does not have a viable plan.
[2020-06-20] MEDS: acetaminophen 325mg tablet PO PRN ×3 (04:50→08:55)
[2020-06-20] MEDS: divalproex sod 250mg ER (24-hour) tablet PO SCH ×2 (07:50→20:07)
[2020-06-20] MEDS: nicotine 21mg patch - 24 hr TD SCH (07:51)
[2020-06-20 08:00] VITALS: BP 123/55
--- NOTE | 2020-06-20 09:01 | NUR ---
1:1-Reality Testing Presenting Issues: Pt continues to experience poor sleep hygiene, angry outbursts when told 'no' or redirected by staff, flight of idepolo aeanitra continually changing his d/c destination. Attending PA wants to d/c pt. Interventions: SS met w/pt and engaged him in some reality testing activities, pt was not receptive. Pt reports that his bio-dad will take him in and asked SS to call bio-dad. SS had t/c w/pt's bio-dad per t/c bio-dad does not believe that pt can access treatment in [facility] and therefore, bio-dad is not able to house pt at this time. Plan: SS will f/u with pt in the AM and discuss best option for d/c for him. Shama Tomlinson LCSW Addendum: 06/21/20 at 0924 by Shama ROACH Amended: Links added.
[2020-06-20] MEDS: LORazepam 1 MG tablet PO PRN ×2 (09:38→19:01)
--- NOTE | 2020-06-20 11:15 | NUR ---
Collateral-Mother Presenting Issues: Per attending PA, pt no longer meets medical necessity criteria for an acute PHF stay. However, pt continues to experience mood irritability, poor impulse management, and poor sleep hygiene, grandiose delusion (believes that he has to return to college (pt is not enrolled in college @ this time), pt also believes that his highway engineering technician would house him or his step-father would allow him to stay at one of the property that the step-dad manages; none of this is true, and requires redirections from staff to maintain his distance when staff are working with other patients. Interventions: SS had t/c w/pt's mother and engaged her in discussion of potential d/c. Pt's mother became upset that pt is d/c-ing and yet no provider has responded to parents' requests for a consult w/re to pt. SS asked if pt's mother is requesting for a family meeting prior to d/c, pt's mother states, "yes". Pt's mother asked about pt's progress, SS discussed pt's compliancy with medication treatment here, and his desire to rt to [place] upon d/c. Pt's mother wants to talk to pt's step-father about pt rt home, family wants pt to rt home but pt must agree to maintain his treatment and take his meds if he is to rt home. Plan: SS will consult w/attending PA and let him know that family is still requesting for a consult prior to d/c. SS will meet w/pt to go over conditions of him d/c-ing home and contact [facility] to coordinate aftercare plan & transportation. Shama Tomlinson LCSW Addendum: 06/20/20 at 1256 by Shama ROACH Amended: Links added.
--- NOTE | 2020-06-20 15:30 | NUR ---
Nursing Progress Note: Legal hold: 525 Client on involuntary status for GD Report received from nurse with use of SBAR: OSEAS Sexton Why are they here: [facility] today on 5150 at 1545 for gravely disabled from [facility]. Pt was manic and making nonsensical speech. Pt has been off of his Invega sustaina. Pt often goes to his fathers house uninvited at 0300 in the morning. Pt has history of anxiety and Schizophrenia. Pt uncooperative at at [facility] requiring multiple prns and B52. Pt was sedated upon arrival but refusing to cooperate with admission but completed. Assessment What has happened this shift: Received pt. up pacing the hallway at the beginning of the shift wearing KN95 masks on various body parts, he continues to present as somewhat disheveled and disorganized. Pt. greeted this consumer loan underwriter appropriately and presented as animated. 1:1 completed at bedside, pt. denies all MH s/s and does not appear to be internally preoccupied. Pt. continues to perseverate on discharge and reports he believes he will be leaving today and returning to live with his mother and attend college in [facility]. Later the morning, pt's mood became increasing labile and he began irritably demanding to leave, pt. stated, "I'd rather walk home than be here! One more hour and I'm leaving!" He accepted PRN Ativan and this wrier provided positive encouragement, pt. was eventually able to be redirected. Pt. continues to exhibit some agitation and can be demanding throughout the shift, but is able to be redirected. Later in the afternoon, pt. changed his mind regarding discharge plans and reported that he no longer wants to return back to [place], but would like to remain here in [facility] and attend [employer]. He appears to impulsively change his mind at intervals. This consumer loan underwriter spoke to pt's father upon pt's request, and provided an update regarding pt's hold, will notify pt's father upon discharge. Pt. reports pain in his rt. great toe r/t a previous injury, PRN Tylenol administered with some effectiveness. Endorsed to ROBERT Verdin who recommends taping toe to neighboring toe in order to provide stabilization, pt. reports effectiveness. Pt. is able to ambulate without difficulty, will continue to monitor. S/I, H/I: Denies A/VH: Pt. denies, does not appear to be internally preoccupied Sleep: Pt. reports he slept restlessly, sleep hours are 4.75 ADL's: pt. requires some direction Group attendance: N/A Were meds taken: Yes Any med S/E: N/A Mental Status Exam Appearance: Somewhat disheveled, wearing KN95 masks on random body parts Eye contact: Good, intense at times Behavior: Cooperative, restless, anxious, impulsive, agitated, irritable, and guarded Speech: Continues to be somewhat hyperverbal Mood: Restless and slightly irritable Affect: Labile Thought process: Somewhat tangental Thought Content: Perseveration on desire to discharge Cognition: A&O X3 Insight: Poor Judgment: Poor Interventions PRN's used: Ativan X1, Tylenol, and Nicotine Lozenge Therapeutic interventions: Ensured contract for safety, maintained a safe and supportive environment, provided clear and simple instructions, monitored behaviors and need for intervention, provided positive encouragement and redirection as needed, and maintained Q 15min safety checks. Restraints/seclusion/emergency medication: N/A Justification of Continued Inpatient Treatment: ROBERT Ramachandran, pt. continues to require a safe and therapeutic environment. He continues to be GD and has no viable plan for discharge at this time.
[2020-06-20 19:48] VITALS: BP 101/65
[2020-06-20] MEDS: traZODone 50mg tablet PO SCH (20:07)
--- NOTE | 2020-06-21 00:50 | NUR ---
Nursing Progress Note: Legal hold: 525 Client on involuntary status for GD Report received from OSEAS Yang with use of SBAR: Why are they here: [facility] on 5150 at 1545 for gravely disabled from [facility]. Pt was manic and making nonsensical speech. Pt has been off of his Invega sustaina. Pt often goes to his fathers house uninvited at 0300 in the morning. Pt has history of anxiety and Schizophrenia. Pt uncooperative at at [facility] requiring multiple prns and B52. Pt was sedated upon arrival but refusing to cooperate with admission but completed. Assessment What has happened this shift: The patient was out on the unit pacing. He appears to be in a good mood while socializing with other clients and watching basketball. He seems to be hungry all the time, as food is always on his mind. He cooperates with staff and is compliant with medications. The patient was up until snack time, which he participated in, then returned to his room for HS med pass. He went to sleep, but seems to have trouble staying asleep. He has asked for and received repeat Trazodone with Ativan, which has been effective at getting him back to sleep. S/I, H/I: Denies A/VH: Denies Sleep: Refer to sleep assessment ADL's: Independent Group attendance: N/A Were meds taken: Yes Any med S/E: None reported or observed Mental Status Exam Appearance: Appropriately dressed in same personal attire as yesterday. Eye contact: Good Behavior: Pleasant, cooperative, socializing appropriately, pacing, watching TV Speech: Clear, audible, regular rate/rhythm Mood: Euthymic Affect: Congruent to mood Thought process: Linear Thought Content: Meeting needs Cognition: A&O X3 Insight: Fair Judgment: Fair Interventions PRN's used: Trazodone, Nicotine lozenges, and Ativan Therapeutic interventions: Ensured contract for safety, maintained a safe and supportive environment, provided clear and simple instructions, monitored behaviors and need for intervention, provided positive encouragement and redirection as needed, and maintained Q 15min safety checks. Restraints/seclusion/emergency medication: N/A Justification of Continued Inpatient Treatment: Per Dr. Cristobal, pt. continues to require medication adjustments and a safe and therapeutic environment. He continues to be a high risk discharge and does not have a viable plan.
[2020-06-21] MEDS: traZODone 50mg tablet PO SCH (01:03)
[2020-06-21] MEDS: LORazepam 1 MG tablet PO PRN ×3 (01:03→16:11)
[2020-06-21] MEDS: NICOTINE POLACRILEX 2 MG LOZENGE BC PRN ×4 (05:54→15:29)
--- NOTE | 2020-06-21 07:15 | NUR ---
CM- Presenting Issues: Per attending PA, "pt no longer meeting MediCal Necessity criteria and needs to d/c". Interventions: SS had t/c with -[facility] DCP, left requesting transportation for pt to rt to [facility] as pt wants to return to [facility] and utilize the mission's services in [place]. Plan: SS will continue to f/u with [facility] re pt's dcp & transportation. Shama Tomlinson HOT TOP LINER Addendum: 06/21/20 at 1020 by Shama Tomlinson Amended: Links added.
[2020-06-21 07:27] VITALS: BP 114/66
[2020-06-21] MEDS: nicotine 21mg patch - 24 hr TD SCH ×3 (08:00→09:20)
[2020-06-21] MEDS: divalproex sod 250mg ER (24-hour) tablet PO SCH ×2 (08:10→20:05)
--- NOTE | 2020-06-21 10:21 | NUR ---
Collateral Presenting Issues: SS received t/c from pt's mother, she was emotionally distraught as she has decided not to allow pt to return to her home due to his inability to maintain outpatient treatment. Interventions: SS normalized her experiences and provided psychoeducation re: LEO, LPS Conservatorship process, and the [facility]'s Patient Advocate. Pt's mother had already reached out to [facility] in [facility] [place] [facility] and they are assisting her with her advocacy for pt to access LPS conservatorship. Mom request that she be notifies when pt is d/c and if he returns to the [facility] necessity in [facility] [place], mom will meet him there to ensure that he follow-up count includes the [facility] behavioral health services. Plan: SS will continue to monitor dcp /[facility]. Shama Tomlinson LCSW Addendum: 06/21/20 at 1028 by Shama ROACH Amended: Links added.
--- NOTE | 2020-06-21 11:48 | NUR ---
Reassessment: Pt continues with mostly 100% PO intake on a regular diet meeting estimated nutrient needs. [facility] 06/20. No nutrition intervention warranted at this time. Will continue to follow. Recommend: 1) Continue regular diet 2) Bowel care PRN 3) Weekly wts Addendum: 06/21/20 at [address] Amended: Links added.
--- NOTE | 2020-06-21 12:08 | NUR ---
DCP Presenting Issues: Per attending PA, pt no longer meets MediCal Necessity criteria and needs a dcp. Interventions: SS met with pt and engaged him in dcp activities, per discussion, pt is aware that his bio-dad and his mother are not able to provide assisted for him at this time. Pt states, "well I'm ready to leave today just send me to the street". SS asked pt if he would consider returning to [place] and utilizing the [place] there, pt agreeable to this and wants to leave immediately, SS was able to guide pt to a middle ground as pt agreed to wait until SS can coordinate his transportation back to [place]. SS had t/c with [facility]DCP @ [facility], left vm requesting a rt t/c to coordinate dcp & transportation. SS re-engaged pt in dcp discussion, pt became agitated and demanded to d/c. SS consulted w/[facility] Director who then accompanied SS to discuss the components of a safe and workable dcp, pt then tells SS that he can stay w/his uncle then changes it to his grandma. However, pt's parents have all informed SS that neither his uncle or grandma would take pt's p/cs at this time. SS consulted w/care team and team decides that pt will be informed that he will need to stay @ [facility] until SS can coordinate transportation for pt to return to [place] where his mother & outpatient providers can support him. It appears that pt continues to experience functional impairments and unable to formulate or accept a reasonable dcp that would enable him to get support and meet his daily basic needs. Plan: will continue to monitor dcp and engage [facility] in dcp activities. Shama oTmlinson LCSW Addendum: 06/21/20 at 1234 by Shama Tomlinson Amended: Links added.
[2020-06-21] MEDS: mag hydrox/Alum hydrox/simeth 30ml oral suspension PO PRN ×2 (15:05→19:56)
--- NOTE | 2020-06-21 15:49 | NUR ---
Nursing Progress Note: Legal hold: 5250 Client on involuntary status for GD Report received from nurse with use of SBAR: OSEAS Cabezas Why are they here: [facility] on 5150 at 1545 for gravely disabled from [facility]. Pt was manic and making nonsensical speech. Pt has been off of his Invega sustaina. Pt often goes to his fathers house uninvited at 0300 in the morning. Pt has history of anxiety and Schizophrenia. Pt uncooperative at at [facility] requiring multiple prns and B52. Pt was sedated upon arrival but refusing to cooperate with admission but completed. Assessment What has happened this shift: Received pt. up in the hallway at the beginning of the shift, he greets this race and sports book writer appropriately, however continues to perseverate on discharge. Pt. states, "I'm going to keep it calm until I find something out about my discharge. I don't want to freak out on anyone!" Pt. remained up in the Recreation Room throughout the morning, working out on the bike and listening to music. 1:1 completed later at [facility], pt. continues to deny all MH s/s and reports he wants to return back to [facility] to live with his mom or to a intermediate. When questioned by this race and sports book writer regarding his previous statements yesterday r/t his desire to remain in [facility] and attend [employer], he stated, "No! Are crazy? I never said that!" He appears to exhibit flighty ideas, poor insight, and judgement. Pt's affect continues to be labile, and he exhibits episodes of increased irritability throughout the day. At approximately 0900, pt. got into a verbal altercation with another patient who was trying to talk to him in the hallway. He was rude and walked away from her while she was trying to talk , stating, "Get me the hell out of here before she starts in!" These patients exchanged some words before being and redirected by staff. Pt. continued to exhibit defiant and antagonistic behaviors throughout the shift. He had two altercations with the global security architect who was stationed on the [facility] unit. One involved an incident when the patient believed that the officer had intentionally brushed against him when passing him in the doorway and he stated agitatedly, "Don't touch me!" along with some other inappropriate words. The global security architect attempted to redirect the patient to his room, however he refused and began yelling out, "Don't threaten me!" This race and sports book writer was able to redirect and de-escalate pt. and PRN Ativan administered with effectiveness. Later in the afternoon at approximately 1600, pt. again approached this global security architect in the hallway, getting into his personal space and sating in an antagonizing way, "Are you going to write-up a report on me?!" The global security architect and patient both approached this race and sports book writer who was able to de-escalate and redirect the situation. Additional PRN Ativan was administered, will continue to monitor. S/I, H/I: Denies A/VH: Pt. denies, does not appear to be internally preoccupied Sleep: Pt. reports he slept well, sleep hours are 6.45 ADL's: pt. requires some direction Group attendance: N/A Were meds taken: Yes Any med S/E: N/A Mental Status Exam Appearance: Somewhat disheveled, however appropriately dressed Eye contact: Good, intense at times Behavior: Cooperative, restless, anxious, impulsive, agitated, irritable, and guarded Speech: WNL, however becomes loud and hyperverbal with agitation Mood: Restless and slightly irritable Affect: Labile Thought process: Somewhat tangental Thought Content: Perseveration on desire to discharge Cognition: A&O X3 Insight: Poor Judgment: Poor Interventions PRN's used: Ativan X1, Maalox, and Nicotine Lozenge Therapeutic interventions: Ensured contract for safety, maintained a safe and supportive environment, provided clear and simple instructions, monitored behaviors and need for intervention, provided positive encouragement and redirection as needed, and maintained Q 15min safety checks. Restraints/seclusion/emergency medication: N/A Justification of Continued Inpatient Treatment: ROBERT Ramachandran, pt. continues to require a safe and therapeutic environment. He continues to be GD and has no viable plan for discharge or a/u outpatient services at this time.
--- NOTE | 2020-06-21 17:12 | NUR ---
DCP Presenting Issues: Pt's scheduled to discharge tomorrow to go to the [facility] in [place], he will be picked up by [facility]. Interventions: SS met w/pt reviewed dcp with him, pt appears to not care about the dcp and focused on leaving tomorrow. SS had t/c with pt's mother to inform her of dcp. Pt's mother is upset that pt will be d/c to the long-term and verbalized how she feels that the dcp is not a safe one as pt won't attend his follow-up appointment if she or step-dad does not take him. Care team apprised of dcp. Plan: Pt to d/c tomorrow morning to follow-up with [facility]. Shama Tomlinson LCSW Addendum: 06/21/20 at 1717 by Shama ROACH Amended: Links added.
[2020-06-21 20:00] VITALS: BP 131/71
[2020-06-21 20:27] VITALS: BP 131/71
[2020-06-22] MEDS: traZODone 50mg tablet PO SCH (01:05)
[2020-06-22] MEDS: NICOTINE POLACRILEX 2 MG LOZENGE BC PRN (01:10)
[2020-06-22] MEDS: acetaminophen 325mg tablet PO PRN (03:06)
--- NOTE | 2020-06-22 03:37 | NUR ---
Nursing Progress Note: [facility] Legal hold: 5250 Client on involuntary status for GD Report received from nurse with use of SBAR: OSEAS Yang Why are they here: PT admitted [facility] to [facility] today on 5150 at 1545 for gravely disabled from [facility]. Pt was manic and making nonsensical speech. Pt has been off of his Invega sustaina. Pt often goes to his fathers house uninvited at 0300 in the morning. Pt has history of anxiety and Schizophrenia. Pt uncooperative at at [facility] requiring multiple prns and B52. Pt was sedated upon arrival but refusing to cooperate with admission but completed. Assessment What has happened this shift: Received pt. up in the hallway at the beginning of the shift, he states he is doing good and was calm and cooperative with 1:1 assessment. States he is tired and wanted to rest in bed. Pt up for snacks and took NOC meds without any issue and went to bed. S/I, H/I: Denies A/VH: Pt. denies, does not appear to be internally preoccupied Sleep: ADL's: pt. requires some direction Group attendance: N/A Were meds taken: Yes Any med S/E: N/A Mental Status Exam Appearance: Somewhat disheveled, however appropriately dressed Eye contact: Good, intense at times Behavior: Cooperative, restless, anxious, impulsive, agitated, irritable, and guarded Speech: WNL, however becomes loud and hyperverbal with agitation Mood: Restless and slightly irritable Affect: Labile Thought process: Somewhat tangental Thought Content: Perseveration on desire to discharge Cognition: A&O X3 Insight: Poor Judgment: Poor Interventions PRN's used: [place] Therapeutic interventions: Ensured contract for safety, maintained a safe and supportive environment, provided clear and simple instructions, monitored behaviors and need for intervention, provided positive encouragement and redirection as needed, and maintained Q 15min safety checks. Restraints/seclusion/emergency medication: N/A Justification of Continued Inpatient Treatment: Per ROBERT Verdin, pt. continues to require a safe and therapeutic environment. He continues to be GD and has no viable plan for discharge or a/u outpatient services at this time.
[2020-06-22 07:33] VITALS: BP 107/65
[2020-06-22] MEDS: divalproex sod 250mg ER (24-hour) tablet PO SCH (07:45)
[2020-06-22] MEDS: nicotine 21mg patch - 24 hr TD SCH (07:50)
[2020-06-22] MEDS: LORazepam 1 MG tablet PO PRN (08:58)
[2020-06-22] MEDS: mag hydrox/Alum hydrox/simeth 30ml oral suspension PO PRN (09:26)
[2020-06-22] MEDS ORDERED: NICO-687 TD (09:34)
[2020-06-22] MEDS ORDERED: DIVA500T9 PO (09:34)
[2020-06-22] MEDS ORDERED: TRAZ-251 PO (09:34)
[2020-06-22] MEDS ORDERED: DIVA250T8 PO (09:34)
[2020-06-22] MEDS ORDERED: NICO-668 BC (09:34)
--- NOTE | 2020-06-22 10:04 | NUR ---
DISCHARGE NOTE: Pt discharged today at 1000. He was picked up by [facility]. Pt ambulated off the unit accompanied by PCT. He was given his discharge packet and copy of his negative Covid results, all belongings were returned. He is being driven to the [facility] in [place]. Pt expressed understanding of his Rx's, his discharge instructions, and his follow up care.
--- NOTE | 2020-06-23 08:17 | NUR ---
CM Pt was d/c'd yesterday. SS received vm from pt's step-father requesting to speak to someone re pt's d/c to the [facility] in [facility]. VM fwd to [facility] director as SS referral's closed and pt's d/c'd. Shama Tomlinson [employer] Addendum: 06/23/20 at 7925 by Shama Tomlinson Amended: Links added.
== END 2020-06-22 10:00 | disposition short-term general hospital (02) | DRG 753 ==
LOC: ADULT MH 16:17
PROVIDERS: ADMIT Psychiatry & Neurology Psychiatry; ATTEND Psychiatry & Neurology Psychiatry
DX: F31.10 Bipolar disorder, current episode manic without psychotic features, unspecified (principal); G43.909 Migraine, unspecified, not intractable, without status migrainosus; Z20.822 Contact with and (suspected) exposure to COVID-19; F12.90 Cannabis use, unspecified, uncomplicated; F17.200 Nicotine dependence, unspecified, uncomplicated; S91.001A Unspecified open wound, right ankle, initial encounter; X58.XXXA Exposure to other specified factors, initial encounter; Z59.0 Homelessness; Y93.89 Activity, other specified; Y92.89 Other specified places as the place of occurrence of the external cause; Y99.8 Other external cause status; Z91.19 Patient's noncompliance with other medical treatment and regimen
CPT/HCPCS: 36415; 86703; 87081; 87426